=== PATIENT | male | born 1980 | race Two or more races ===

== ENCOUNTER 2018-07-03 18:25 | Observation (INO) | payer OTHER ==
[2018-07-03] MEDS ORDERED: ASPIRIN 81 MG CHEWABLE TAB PO ONE (18:46)
[2018-07-03 19:04] LABS: PLATELET COUNT 211 10^3/uL (150-400)
[2018-07-03] MEDS ORDERED: ONDANSETRON 4 MG/2 ML VIAL IVP PRN (20:34)
[2018-07-03] MEDS ORDERED: ACETAMINOPHEN 325 MG TAB PO PRN (20:34)
[2018-07-03] MEDS ORDERED: PROMETHAZINE HCL 25 MG/ML INJ IVP PRN (20:34)
[2018-07-03] MEDS ORDERED: ONDANSETRON DISINTEGRATING 4 MG TAB PO PRN (20:34)
[2018-07-03] MEDS ORDERED: HYDROCODONE/APAP 5/325 TAB PO PRN (20:34)
[2018-07-03] MEDS ORDERED: hydrALAZINE 20 MG/ML VIAL IVP PRN (22:04)
--- NOTE | 2018-07-03 22:46 | GHP ---
DATE OF ADMISSION: 07/03/2018 CHIEF COMPLAINT: Chest pain. HISTORY: This is a 37-year-old, Mongolian-speaking only patient who presents with complaints of chest pain for 1 week. He notes that the pain is located in the left and substernal region without radiati on. It is intermittently severe. It has been coming and going for the last week. He notes that it is often made worse with exertion. He has had similar symptoms in the past 1 to 3 times, though he h as never undergone a workup for it in the past. At this time, he notes that the pain is essentially gone. He otherwise denies any associated complaints including shortness of breath, fevers or chills, cough. PAST MEDICAL HISTORY: Includes: 1. Hypertension. 2. Prediabetes. 3. Hyperlipidemia. PAST SURGICAL HISTORY: Denies. FAMILY HISTORY: Father with diabetes. SOCIAL HISTORY: Patient is originally from [place], but he has been here for 20 years. He is a nonsm oker. Drinks alcohol rarely. Denies illicit drug use. MEDICATIONS: Include: 1. Meloxicam. 2. Lisinopril. ALLERGIES: No known drug allergies. PHYSICAL EXAMINATION: VITAL SIGNS: BP 164/99, heart rate 59, respiratory rate 20, O2 sats 95% on ro om air, temperature is 36.4. GENERAL APPEARANCE: This is a well-developed, well-nourished man. He is awake and alert. He is in no acute distress. EYES: Anicteric. HENT: Oropharynx clear. CARDIO VASCULAR: Regular rate and rhythm. No MRG. PULMONARY: CTA bilaterally. Normal breathing. ABDOME N: Soft, nontender, nondistended. EXTREMITIES: No clubbing, cyanosis, or edema. SKIN: Warm, dry, well perfused. NEURO/PSYCH: Orien corona, appropriate, pleasant. CLINICAL DATA: 1. Labs reviewed and notable for white blood cell count of 5.9. Chemistry is unremarkable. Troponi n was 0.00. 2. EKG, personally reviewed and interpreted, notable for sinus rhythm, minimal ST elevations anterio rly, likely LVH. No olds to compare. 3. Chest x-ray personally reviewed and interpreted, showing mild central perihilar bronchial wall th ickening without infiltrate. ASSESSMENT AND PLAN: This is a 37-year-old man with past medical history of hypertension presenting with chest pain and abnormal EKG. 1. Chest pain: This is in the setting of abnormal EKG without prior baseline to compare. He does h ave minimal ST elevations present anteriorly, concerning for ischemia. This was reviewed with ER doc tors who agree that patient should have further workup performed. He will be monitored overnight on telemetry. Serial troponins will be obtained. We will perform stress test in the morning for furthe r evaluation. 2. Hypertension, poorly controlled, with evidence of left ventricular hypertrophy on EKG: Patient i s on lisinopril at home which may need to be increased. For now, p.r.n. hydralazine and monitor over night. It could be increased due to his pain. 3. Prediabetes: This is per patient's report. We will obtain hemoglobin A1c for further evaluation . 4. Hyperlipidemia: Again, patient reports he has been told in the past that he has elevated lipids. We will obtain a lipid panel in the morning for further risk stratification. 5. Observation status: Suspect patient will require less than 48-hour stay for evaluation and manag ement of above. 6. The patient is new to my care. Old records reviewed, summarized as per HPI and past medical hist ory. Care plan reviewed with ER physician including plans for ACS eval. /[id number]/MODL
--- NOTE | 2018-07-03 23:12 | CPEKG ---
Test Reason : OPEN Blood Pressure : / mmHG Vent. Rate : 058 BPM Atrial Rate : 059 BPM P-R Int : 158 ms QRS Dur : 113 ms QT Int : 423 ms P-R-T Axes : 022 063 088 degrees QTc Int : 416 ms Sinus rhythm Probable left ventricular hypertrophy Abnormal inferior Q waves ST elevation, consider anterior injury Confirmed by Celestina Hinson ([id number]) on 07/03/2018 11:11:51 PM Referred By: Confirmed By:Celestina Hinson
--- NOTE | 2018-07-03 23:18 | EDPHY ---
H & P Smoking Status: Never smoked Time Seen by Provider: 07/03/18 18:35 HPI/ROS: CHIEF COMPLAINT: Chest pain HISTORY OF PRESENT ILLNESS: Patient is a 37-year-old male with a history of dyslipidemia and hypertension sent here from his primary care doctor's office concern for chest pain. States he has had left-sided chest pain that is worse with movement of the left arm and with using his chest muscles. Denies any shortness of breath. Pain does not radiate to the back shoulder arm or jaw. He has no prior history of ACS, diabetes, smoking. Has no prior EKGs. He has never had a stress test. He has no significant family history of early heart attack. REVIEW OF SYSTEMS: Constitutional: No fever, no chills. Eyes: No discharge. ENT: No sore throat. Cardiovascular: + chest pain, no palpitations. Respiratory: No cough, no shortness of breath. Gastrointestinal: No abdominal pain, no vomiting. Genitourinary: No hematuria. Musculoskeletal: No back pain. Skin: No rashes. Neurological: No headache. (Jun Castro) Physical Exam: General Appearance: Alert and no distress. Eyes: Pupils equal and round no injection. Respiratory: Chest is nontender, lungs are clear to auscultation. Cardiac: regular rate and rhythm. Gastrointestinal: Abdomen is soft and nontender, no masses, bowel sounds normal. Musculoskeletal: Neck is supple and nontender. Extremities have full range of motion and are nontender. Skin: No rashes or lesions. (Jun Castro) Constitutional: Initial Vital Signs Temperature (C) 36.5 C 07/03/18 18:26 Heart Rate 70 07/03/18 18:26 Respiratory Rate 16 07/03/18 18:26 Blood Pressure 169/91 H 07/03/18 18:26 O2 Sat (%) 97 07/03/18 18:26 O2 Delivery Mode Room Air Allergies/Adverse Reactions: No Known Allergies Allergy (Verified 10/20/15 15:50) Home Medications: Medication Instructions Recorded Lisinopril [Zestril 10 mg (*)] 10 mg PO DAILY 07/03/18 Meloxicam 15 mg PO DAILY PRN 07/03/18 Medical Decision Making - Diagnostics EKG Interpretation: 12 lead EKG is interpreted in [place] by emergency department physician. (Celestina Hinson) Imaging Results: Imaging Impressions Chest X-Ray 07/03/18 18:45 Impression: Mild central perihilar bronchial wall thickening, with no focal infiltrate. ED Course/Re-evaluation: 37-year-old male here with chest pain for the last week that has been and [address] elevation in V1 and V2 but troponin is negative at 0.00. Patient appears nontoxic and non diaphoretic and vital signs are all stable. He was given aspirin in the E R. He is admitted for for night stress testing and serial troponins given his EKG changes and risk factors of obesity, dyslipidemia and hypertension. (Jun Castro) The patient was evaluated and managed by the physician visitor services information assistant. I have reviewed this chart and I agree with the findings and plan of care as documented , as indicated by my signature. I am the secondary supervising physician. I reviewed the patient's EKG. I have also reviewed the laboratory studies and chest x-ray. (Celestina Hinson) Differential Diagnosis: Pulmonary embolism, ACS, arrhythmia, unstable angina (Jun Castro) - Data Points Laboratory Results: Laboratory Results 07/03/18 18:51 07/03/18 18:51 07/03/18 07/03/18 07/03/18 18:54 18:51 18:51 WBC 5.93 10^3/uL 10^3/uL (3.80-9.50) RBC 5.43 10^6/uL 10^6/uL (4.40-6.38) Hgb 15.2 g/dL g/dL (13.7-17.5) Hct 41.8 % % (40.0-51.0) MCV 77.0 fL L fL (81.5-99.8) MCH 28.0 pg pg (27.9-34.1) MCHC 36.4 g/dL g/dL (32.4-36.7) RDW 16.2 % H % (11.5-15.2) Plt Count 211 10^3/uL 10^3/uL (150-400) MPV 11.1 fL fL (8.7-11.7) Neut % (Auto) 57.6 % % (39.3-74.2) Lymph % (Auto) 34.2 % % (15.0-45.0) [place] % (Auto) 5.7 % % (4.5-13.0) Eos % (Auto) 1.5 % % (0.6-7.6) Baso % (Auto) 0.7 % % (0.3-1.7) Nucleat RBC Rel Count 0.0 % % (0.0-0.2) Absolute Neuts (auto) 3.41 10^3/uL 10^3/uL (1.70-6.50) Absolute Lymphs (auto) 2.03 10^3/uL 10^3/uL (1.00-3.00) Absolute Monos (auto) 0.34 10^3/uL 10^3/uL (0.30-0.80) Absolute Eos (auto) 0.09 10^3/uL 10^3/uL (0.03-0.40) Absolute Basos (auto) 0.04 10^3/uL 10^3/uL (0.02-0.10) Absolute Nucleated RBC 0.00 10^3/uL 10^3/uL (0-0.01) Immature Gran % 0.3 % % (0.0-1.1) Immature Gran # 0.02 10^3/uL 10^3/uL (0.00-0.10) Sodium 139 mEq/L mEq/L (135-145) Potassium 4.5 mEq/L mEq/L (3.3-5.0) Chloride 105 mEq/L mEq/L (97-110) Carbon Dioxide 25 mEq/l mEq/l (22-31) Anion Gap 9 mEq/L mEq/L (8-16) BUN 21 mg/dL mg/dL (7-23) Creatinine 0.9 mg/dL mg/dL (0.7-1.3) Estimated GFR > 60 Glucose 95 mg/dL mg/dL (70-100) Calcium 8.7 mg/dL mg/dL (8.5-10.4) POC Troponin I 0.00 ng/mL ng/mL (0.00-0.08) Medications Given: Discontinued Medications Aspirin (Aspirin) 324 mg PO EDNOW ONE Stop: 07/03/18 18:47 Last Admin: 07/03/18 19:02 Dose: 243 mg Point of Care Test Results: Chemistry 07/03/18 18:54 POC Troponin I 0.00 ng/mL ng/mL (0.00-0.08) Departure - Departure Disposition: [facility] Acute Condition: Good
[2018-07-04] MEDS ORDERED: LISINOPRIL 10 MG TAB PO SCH (09:00)
--- NOTE | 2018-07-04 12:03 | CPR ---
DATE OF PROCEDURE: 07/04/2018 Cardiopulmonary Report PROCEDURE: Exercise nuclear stress test. INDICATION: The patient is a 37-year-old male who presented to the hospital with chest pain. His ri sk factors for coronary disease include hypertension and hyperlipidemia. His chest discomfort is pos itional. It is typically worse when getting out of bed on his left side. If he gets out of bed on h is right side, he has no discomfort. PROCEDURE IN DETAIL: Consent was obtained. The patient was placed on continuous telemetry. His res ting EKG revealed normal sinus rhythm with a heart rate of 63. He had nonpathological Q-waves in inf erior and lateral leads. There were also nonspecific ST-T wave changes. The patient walked on the [employer] for 9.5 minutes without any associated symptoms. He remained in normal sinus rhythm with no nspecific ST-T wave changes. The exercise portion of the study was discontinued secondary to maximal effort. He reached a heart rate of 155 beats per minute, which was greater than his heart rate goal . His blood pressure at rest was 150/82 and peaked at 218/80. It returned to baseline approximately 5 minutes into recovery. He did not receive his hypertensive medications this morning. PLAN: Await nuclear images. He did have a hypertensive response to exercise, but he had not receive d his blood pressure medications today. /[id number]/MODL
[2018-07-04 12:44] VITALS: BP 136/75
--- NOTE | 2018-07-04 14:05 | GDS ---
DISCHARGE DIAGNOSES: 1. Atypical chest pain, suspected musculoskeletal. 2. Hypertension. 3. Hyperlipidemia. HISTORY: For details, please see history and physical dated July 03, 2018. In brief, the patient is a 37-year-old male with history of hypertension, hyperlipidemia, who presents to the emergency department after he was directed by his primary care based on an abnormal EKG. He states he has been chest pain- free here, but has had intermittent chest pain, which he localized to his left chest wall. This was worse when he gets up on his left side and seems to be positional in nature. Given his risk factors, he was admitted to the hospital for further evaluation. HOSPITAL COURSE: Patient was admitted to the cardiac telemetry unit. His EKG is consistent with probable left ventricular hypertrophy pattern in the setting of long-standing hypertension, J point elevation is noted. He has recently been started on lisinopril. Although his blood pressure was elevated on arrival , on the day of discharge, it has come down to 136/75, which is acceptable. Therefore, he will be continued on his current dose of lisinopril at discharge. He had negative troponins x3. An exercise stress test with nuclear medicine on the day of discharge showed normal perfusion, with no evidence of myocardial infarction or stress-induced ischemia. His calculated left ventricular ejection fraction is 56%. He had normal myocardial contractility. I do recommend he have an echocardiogram at some point in the outpatient setting to evaluate for left ventricular hypertrophy. Also of note, his triglycerides were greater than 525, with a total cholesterol of 229 and an HDL of 22. He was started on atorvastatin at discharge. He should follow up with his primary care to discuss further cholesterol management. In addition, I recommend he continue his anti-inflammatory, and I have suggested an [id number] lidocaine patch to assist with his presumed musculoskeletal chest discomfort. DISPOSITION: Patient was discharged home in stable condition. FOLLOWUP: He should follow up with his primary care physician. He said he has an appointment next week to recheck his blood pressure and follow up on his cholesterol. DISCHARGE MEDICATIONS: Please see [facility] for completed outpatient medication list. Medications on discharge include atorvastatin 40 mg p.o. daily, #30, no refills; Tylenol 650 p.o. q.4 hours p.r.n.; and Lidoderm [id number] patch daily as needed. /[id number]/MODL MTDD
--- NOTE | 2018-07-04 14:59 | ASDISCHSUM ---
Discharge Information Plan Status:Home with No Needs Medically Cleared to Leave:07/04/2018 Discharge Date:07/04/2018 CM D/C Disposition:Home, Routine, Self-Care ADT D/C Disposition:Home, Routine, Self-Care Projected Discharge Date:07/04/2018 Transportation at D/C:Family Discharge Delay Reason: Follow-Up Date:07/04/2018 Discharge Slot: Final Diagnosis: Placement Information Patient Contact Information Contact Name:ALYSIA Relationship: Address:[address] Work Phone: City:[place] Alternate Phone: State/Zip Code:[place] [address] Email: Financial Information Financial Class:Self-Pay Primary Plan Desc:WE CARE Primary Plan Number:N/A Secondary Plan Desc: Secondary Plan Number: Assessment Information LACE LACE Length of stay for Answers: Less than 1 day current admission Acuity / Level of Answers: No Care: Did the patient have an inpatient admission? Comorbidities - select Answers: Other Notes: HTN; HLD; Pre-diab all that apply etes # of Emergency department Answers: 1-2 visits in the last 6 months Score: 2 Date Signed: 07/04/2018 02:57 PM Electronically Signed By:Earline Mina RN [facility] Progress Note CM Note CM Note Notes: 07/04/2018 Case Management Note Discussed pt during rounds this morning. Pt admitted for chest pain and ST elevation on EKG. Stress test planned for today. Pt was screened for emergency medicaid by [employer]. There are no case management d/c needs identified d/t pt age,employment status and family supports. Case Management d/c poc: independent with follow up as directed. Date Signed: 07/04/2018 02:57 PM Electronically Signed By:Earline Mina RN Intervention Information
--- NOTE | 2018-07-05 12:10 | CPEKG ---
Test Reason : OPEN Blood Pressure : / mmHG Vent. Rate : 060 BPM Atrial Rate : 060 BPM P-R Int : 181 ms QRS Dur : 106 ms QT Int : 423 ms P-R-T Axes : 044 081 074 degrees QTc Int : 423 ms Sinus rhythm Probable left ventricular hypertrophy ST elevation, consider anterior injury Confirmed by Bry Moore ([id number]) on 07/05/2018 12:09:52 PM Referred By: Confirmed By:Bry Moore
== END 2018-07-04 17:01 | disposition home or self-care (01) ==
LOC: F2W 20:35
PROVIDERS: ADMIT Internal Medicine; ATTEND Internal Medicine
DX: R07.89 Other chest pain (principal); I10 Essential (primary) hypertension; E78.5 Hyperlipidemia, unspecified
CPT/HCPCS: 84484-PO; A9500; G0378